=== PATIENT | male | born 1965 | race Caucasian/White ===

== ENCOUNTER 2020-12-12 14:03 | Observation (INO) | payer MEDICAID ==
[~2020-12-12] VITALS: Ht 182.9 cm; Wt 122.7 kg
[2020-12-12] MEDS ORDERED: ALEVE220 MG (14:12)
[2020-12-12] MEDS ORDERED: BENADRYL25 MG (14:12)
--- NOTE | 2020-12-12 14:57 | NUR ---
foot elevated with cold pack
[2020-12-12 15:42] VITALS: BP 133/78
--- NOTE | 2020-12-12 15:43 | NUR ---
patient educated on plan of care. pt. verbalizes understanding
[2020-12-12 15:55] LABS: HEMATOCRIT 47.4 % (42.0-54.0); HEMOGLOBIN 16.1 g/dL (13.5-17.5); LYMPHOCYTES 17.5 % (15-50); MCH 31.3 pg (26.0-34.0); MCV 92.2 fL (80.0-100.0); MEAN PLATELET VOLUME 9.5 fL (7.4-10.4); NEUTROPHILS 73.2 % (40-80); PLATELET COUNT 225 10x3/uL (130-400); RBC 5.14 10x6/uL (4.20-6.10); RDW 12.7 % (11.5-14.5); WBC 13.6 10x3/uL (4.8-10.8)
[2020-12-12 16:01] LABS: CALC OSMOLALITY 278 mosm/kg (275-300); CALCIUM 9.5 mg/dL (8.5-10.1); CARBON DIOXIDE 26.5 mmol/L (21.0-32.0); CHLORIDE - SERUM 103 mmol/L (98-107); GLUCOSE 96 mg/dL (74-106); POTASSIUM - SERUM 4.2 mmol/L (3.5-5.1); SODIUM 138 mmol/L (136-145); UREA NITROGEN 21 mg/dL (7-18); eGFR NON AFRICAN AMERICAN 82 mL/min (90-120)
[2020-12-12 16:04] LABS: INR 1.16 (0.85-1.17); PROTIME 13.8 SECONDS (11.6-15.0)
[2020-12-12 16:07] LABS: ALBUMIN 4.3 g/dL (3.4-5.0); ALKALINE PHOSPHATASE 94 U/L (30-120); ALT (SGPT) 28 U/L (10-68); BILIRUBIN - TOTAL 0.26 mg/dL (0.2-1.3); MAGNESIUM - SERUM 1.9 mg/dL (1.8-2.4); PROTEIN - SERUM 7.7 g/dL (6.4-8.2)
--- NOTE | 2020-12-12 16:24 | NUR ---
PATIENT PROVIDED MEAL AND BEVERAGE. PT. A/O X3. DENIES ANY ADDITIONAL NEEDS AT THIS TIME. NO ACUTE DISTRESS OBSERVED
[2020-12-12 18:45] VITALS: BP 129/76
--- NOTE | 2020-12-12 19:00 | NUR ---
RECIEVED TO ROOM FROM ER VIA W/C, TRANSFERED TO BED, SKYLA WRAP SPLINT TO LEFT LOWER LEG AND FOOT, TOES WARM AND PINK, LEG ELEVATED UP ON PILLOWS AND ICE APPLIED, SEE ASSESSMENT, CALL LIGHT IN REACH
[2020-12-12 19:56] VITALS: BP 155/88
[2020-12-12 20:14] VITALS: BP 155/88; Ht 182.9 cm; Wt 122.7 kg
[2020-12-13] VITALS (8 sets, daily range): BP systolic 117–151; BP diastolic 66–107
--- NOTE | 2020-12-13 07:53 | NUR ---
PT AWAKE, ALERT, AND ORIENTED. TALKING TO ON PHONE. STATES PAIN IS A 7 OUT OF 10 ON THE PAIN SCALE. CL IN REACH. NO FURTHER NEEDS AT THIS TIME. WCTM
--- NOTE | 2020-12-13 12:40 | NUR ---
PT PREOPPED AND GONE FOR SURGERY.
[2020-12-13] MEDS ORDERED: PERCOCET 10-321 EAC1 PO (17:05)
[2020-12-13] MEDS ORDERED: VISTARIL50 MG PO (17:05)
[2020-12-13] MEDS ORDERED: BAYER CHEWABLE81 MG PO (17:06)
--- NOTE | 2020-12-13 20:31 | NUR ---
ASSESSED AT THE BEGINNING OF THE SHIFT. PT IS ALERT AND ORIENTED, ABLE TO VERBALIZE NEEDS. HE HAS EATEN WITHOUT NAUSEA AND GONE TO THE BATHROOM WITHOUT PROBLEM. ALL PAPERWORK WAS SIGNED AND GONE OVER. THE RX'S FOR PERCOCET, VISTARIL AND ASA 81 MG WAS GIVEN TO PT. IV SITE WAS DC'D AND THEN DRESSING WAS REINFORCED WITH KERLIX AND SKYLA DUE TO BLEEDING WHICH WAS UNDER CONTROL. PT ADVISED IF ANY PROBLEM WHICH PHONE NUMBER TO CALL. CRUTCHES WERE GONE OVER AND THEN PT WAS TAKEN TO THE ER WHERE RIDE WAS WAITNG VIA W/C.
--- NOTE | 2020-12-14 19:11 | OP ---
PATIENT NAME: EDDIE CR MEDICAL RECORD: [id number] :61 LOCATION:D.M3 D.1208 ADMISSION DATE:12/12/20 SURGEON: MIKE COLLINS DO DATE OF OPERATION: 12/13/2020 PROCEDURE PERFORMED: Left ankle open reduction internal fixation. PREOPERATIVE DIAGNOSIS: Left ankle bimalleolar fracture. POSTOPERATIVE DIAGNOSIS: Left ankle bimalleolar fracture. INDICATIONS: Mr. Saucedo is a 55-year-old male who twisted and rolled his ankle yesterday, came to the ER, was found to have a bimalleolar fracture on x-ray. He was admitted overnight for pain control and told we will be doing the surgery today, kept ice and elevated overnight. I informed him of the risks of this including infection, bleeding, damage to nerves and vessel in the area, continued pain, need for further surgery, malunion, nonunion, failure of implants and he signed a consent. SURGEON: Mike Collins DO DESCRIPTION OF PROCEDURE: The patient was taken to the operative suite. After given a block per anesthesia in preoperative area, given 3 grams of Ancef preoperatively, sedated and LMA was placed. The left lower extremity was then prepped and draped in sterile fashion. Timeout was performed, everyone was in agreeance with the correct side, site, patient and procedure. I then exsanguinated the left lower extremity with an Esmarch, tourniquet was inflated to 350 mmHg, it was up for 117 minutes. I then made an incision over the medial malleolus and exposed the fracture site, reduced it, attempted to put a plate on. Once I got the plate on, the fracture now reduced. I then removed the plate and put 2 cannulated screws in through the medial malleolus. I then put then antiglide plate back on and held the fracture, reduced nicely. One of the screw heads broke off that I put on the first time through the plate. I then put 2 more screws distally and 2 proximally, holding the antiglide plate in good position as well as a vertical shear off the medial malleolus. The joint line was reduced well. Once I finished that and that was in good position, I went to the lateral side, made a small incision at the tip of the fibula, drilled with K-wire into the tip of the fibula and then once it was in good position a reamer, I then opened up an incision on the lateral aspect of the fibula to reduce the fracture. I then put a reamer up to the fibula and put in a 3.6 IM nail up the fibula by Acumed, the medial plate was Acumed as well. Once that was then placed through the guide, I put 2 screws distally and then put a titanium ZipTight through one of the lateral holes through the nail and cinched it down after clamping the ankle joint together with a large clamp with it dorsiflexed. The medial clear space did not stress after I put the ZipTight, did prior to that, and held it well. I then put the tourniquet down, irrigated thoroughly. Damon Barber, americ[place] board certified orthotist and I then closed the incisions with 2-0 Vicryl in inverted interrupted fashion, 4-0 Monocryl on the skin on the lateral side as there were just 3 poke holes, really 3 smaller incisions on the medial side, I closed with 2-0 Vicryl in inverted interrupted fashion and ZipLine. He was then dressed with Adaptic, 4 x 4s, ABD, cast padding as well as Kerlix, put in a 4 x 30 splint and secured with an Rehan wrap. He was awakened and taken to recovery in stable condition. BLOOD LOSS: Minimal. OPERATIVE REPORT [id number] EDDIE CR COMPLICATIONS: None. TRANSINT:[id number] Voice Confirmation ID: [id number] DOCUMENT ID: [id number] MIKE COLLINS DO at 1911 CC: [id number] DICTATION DATE: 12/13/20 1630 NEON TUBE BENDER: 12/14/20 1230 DIS IN 12/13/20 [facility] [address] [id number]
== END 2020-12-13 20:30 | disposition home or self-care (01) ==
LOC: D.ER 14:03 → D.EDHOLD 15:31 → D.M3 15:31 → OBSVTIME 15:31 → D.M3 17:38
PROVIDERS: Emergency Medicine; ADMIT Orthopaedic Surgery; ATTEND Orthopaedic Surgery
DX: S82.842A Displaced bimalleolar fracture of left lower leg, initial encounter for closed fracture (principal); X58.XXXA Exposure to other specified factors, initial encounter